=== PATIENT | male | born 1940 | race Caucasian/White ===

== ENCOUNTER → 2024-05-23 15:56 | Outpatient (REF) | payer MEDICARE, SELFPAY ==
[2024-05-23 16:17] LABS: MANUAL DIFF FLAG NO
[2024-05-23 17:20] LABS: Basophils Percent Auto 0.5 % (0-2); Eosinophils Absolute Auto 0.1 X10*3/uL (0.0-0.4); Eosinophils Percent Auto 2.4 % (0-4); Hematocrit 40.6 % (42.0-52.0); Hemoglobin 13.5 g/dl (14.0-18.0); Imm Gran Abs Auto 0.04 X10*3/uL (0.00-0.03); Imm Gran Pct Auto 0.7 % (0.0-0.4); Lymphocytes Absolute Auto 1.4 X10*3/uL (1.2-4.9); Lymphocytes Percent Auto 25.5 % (20-40); Mean Corpuscular HGB Conc 33.3 g/dl (31.0-36.0); Mean Corpuscular Hemoglobin 30.2 pg (27.0-33.0); Mean Corpuscular Volume 90.8 fL (80.0-98.0); Mean Platelet Volume 10.7 fL (9.4-12.4); Monocytes Absolute Auto 0.4 X10*3/uL (0.1-1.2); Monocytes Percent Auto 7.2 % (2-11); Neutrophils Absolute Auto 3.5 x10*3/uL (2.0-8.3); Neutrophils Percent Auto 63.7 % (45-73); Platelet Count 203 X10*3/uL (160-400); Red Blood Count 4.47 X10*6/uL (4.60-5.80); Red Cell Distribution Width 13.2 % (11.0-16.0); White Blood Count 5.5 X10*3/uL (4.8-10.8)
[2024-05-23 17:38] LABS: Alanine Aminotransferase 16 U/L (0-40); Albumin Level 4.1 g/dL (3.5-5.0); Anion Gap 12 (12-20); Aspartate Amino Transferase 24 U/L (5-37); Bilirubin Total 0.5 mg/dL (0.0-1.0); Blood Urea Nitrogen 14 mg/dL (9-16); Calcium 9.2 mg/dL (8.4-10.2); Carbon Dioxide 30 mmol/L (22-29); Chloride 102 mmol/L (96-108); Estimated Glomerular Filt Rate > 60; Glucose Random 95 mg/dL (60-115); Magnesium 2.1 mg/dL (1.6-2.6); Potassium 3.2 mmol/L (3.3-5.1); Sodium 141 mmol/L (135-145); Total Protein 7.9 g/dL (6.5-8.0)
[2024-05-23 17:57] LABS: Alkaline Phosphatase 58 U/L (39-117)
--- OUTSIDE RECORDS SUMMARY | 2024-05-23 18:11 | XMS_ITS | Encounter Summary ---
Author Organization [facility] Address [address] [place] [address] Care Team Providers Care Supervisor Acoustical Tile Carpenters Name Role Phone Lisandra Hernandez NP Primary Care Provider [phone] Reason for Referral * Cardiac Stress Testing (Routine) - Authorized Specialty Diagnoses / Procedures Referred By Contac t Referred To Contact Cardiology Diagnoses Abnormal EKG Chest pain, unspecified type Procedures Regadenoson (Lexiscan) nuclear stress test with myocardial perfusion IL MYOCARDIAL PERFUSION IMAGING TOMOGRAPHIC MULTI STUDIES AT REST OR STRESS IL MYOCARDIAL PERFUSION IMAGING TOMOGRAPHIC SINGLE STUDY AT REST OR STRESS IL CARDIOVASCULAR STRESS TEST GLOBAL IL CV TMST/BIKE MAX/SUBMAX CONTINUOUS ECG MON/PHARM STRESS SUPVSR ONLY IL CV STRESS TEST/BIKE CONT ECG MON/PHARM STRESS INTERP & REPORT ONLY IL TEST STRESS CARDIOVASCULAR TRACING ONLY Juan Pablo Gerard MD [address] [place] [address] Phone: tel: fax: [place] [address] Phone: tel: Referral ID Status Reason Start Date Expiration Date V isits Requested Visits Authorized [id number] Authorized 05/10/2024 05/10/2025 1 1 Encounter Details Date Type Department Care Team (Late st Contact Info) Description 05/04/2024 4:00 PM EST Office Visit [facility] [place] [facility] [place] [address] [place] [phone] Juan Pablo Gerard MD [address] [place] [address] Essential hypertension (Primary Dx); Abnormal EKG; Mixed hyperlipidemia; Chest pain, unspecified type Social History Tobacco Use Types Packs/Day Years Used Date Smoking Tobacco: Every Day Smokeless Tobacco: Never Sex and Gender Information Value Date Recorded Sex Assigned at Not on file Legal Sex Male 6:56 PM EST Gender Identity Not on file Sexual Orientation Not on file documented as of this encounter Last Filed Vital Signs Vital Sign Reading Time Taken Comments Blood Pressure 132/72 05/04/2024 4:17 PM EST Pulse 61 05/04/2024 4:17 PM EST Temperature - - Respiratory Rate - - Oxygen Saturation 94% 05/04/2024 4:17 PM EST Inhaled Oxygen Concentration - - Weight 78.9 kg (174 lb) 05/04/2024 4:17 PM EST Height 170.2 cm (5' 7 ) 05/04/2024 4:17 PM EST Body Mass Index 27.25 05/04/2024 4:17 PM EST documented in this encounter Progress Notes * Juan Pablo Gerard MD - 05/04/2024 4:00 PM EST Images from the original note were not included. Cardiology Attending Outpatient Progress Note-05/04/2024 [facility] Immigration Investigator-Moustapha Patient Name:Derek Faulkner Patient : 1940 Referring Provider:Lisandra Hernandez NP Interval History: The patient is a 83 y.o. male who was seen today for follow up of HTN, HLD, and Abn EKG. States he can climb stairs and plays soccer with the grandchildren. No lightheadedness / dizziness. + chest/shoulder pain at rest. No dyspnea. No palpitations / racing heart symptoms. No LE edema, orthopnea, or PND. BP is acceptable in the office today - 132/72. EKG reviewed - abnormal. Left axis deviation. Ns t changes. Current Outpatient Medications Medication Sig Dispense Refill aspirin 81 mg EC tablet Take 81 mg by mouth daily. atorvastatin (LIPITOR) 10 mg tablet Take 10 mg by mouth every evening. lisinopriL (PRINIVIL,ZESTRIL) 10 mg tablet Take 10 mg by mouth daily. multivit-min/folic acid/lutein (CENTRUM SILVER ORAL) Take by mouth 1 (one) time each day. tamsulosin (FLOMAX) 0.4 mg 24 hr capsule Take 1 capsule (0.4 mg total) by mouth 1 (one) time each day. Vitamin C tablet Take 100 mg by mouth daily. cholecalciferol (VITAMIN D-3) 10 mcg (400 unit) tablet Take 10 mcg by mouth daily. (Patient not taking: Reported on 05/04/2024) No current facility-administered medications for this visit. No Known Allergies VS Visit Vitals BP 132/72 Pulse 61 Ht 1.702 m (67 ) Wt 78.9 kg (174 lb) SpO2 94% BMI 27.25 kg/m?? Smoking Status Every Day BSA 1.91 m?? Today's PE and ROS Complete 12 point review of systems was completed and is negative as per HPI. Physical Exam Physical Exam Constitutional: General: He is not in acute distress. Appearance: Normal appearance. He is normal weight. HENT: Head: Normocephalic and atraumatic. Nose: Nose normal. Mouth/Throat: Mouth: Mucous membranes are moist. Eyes: Conjunctiva/sclera: Conjunctivae normal. Cardiovascular: Rate and Rhythm: Normal rate and regular rhythm. Pulses: Normal pulses. Pulmonary: Effort: Pulmonary effort is normal. No respiratory distress. Abdominal: Tenderness: There is no abdominal tenderness. Musculoskeletal: Cervical back: Normal range of motion. Skin: General: Skin is warm. Neurological: Mental Status: He is oriented to person, place, and time. Mental status is at baseline. Psychiatric: Thought Content: Thought content normal. Judgment: Judgment normal. EKG: Encounter Date: 05/04/24 ECG 12 lead Impression NSR 63, LAD, ns st/t changes History reviewed. No pertinent past medical history. History reviewed. No pertinent surgical history. Social History Socioeconomic History Marital status: Spouse name: Not on file Number of children: Not on file Years of education: Not on file Highest education level: Not on file Occupational History Not on file Tobacco Use Smoking status: Every Day Smokeless tobacco: Never Substance and Sexual Activity Alcohol use: Not on file Drug use: Not on file Sexual activity: Not on file Other Topics Concern Not on file Social History Narrative Not on file No family history on file. Assessment and Plan: HTN - BP acceptable today. Encouraged at home checks. -On lisinopril 10 mg daily. HLD - Last lipids are mostly at goal -- low HDL. -On well tolerated low dose atorvastatin of 10 mg daily. No change. +chest and shoulder pain - duration of a few seconds at rest. -Currently taking aspirin 81 mg daily. -If symptoms return, discussed obtaining a stress test. Abn. EKG - Echo 2021 showed low-nl EF with mild AI. Body mass index is 27.25 kg/m??. -Discussed the importance of a heart healthy diet, hydration, and exercise as tolerated. All questions were answered to the patient's satisfaction. Follow up arranged. Juan Pablo Gerard MD 05/04/2024 Office [phone] IHenny, attest that this documentation has been prepared under the direction and in the presence of Juan Pablo Gerard MD. I, Juan Pablo Gerard MD, personally performed the services described in this documentation. All medical record entries made by the scribe were at my direction and in my presence. I have reviewed the chart and agree that the record reflects my personal performance and is accurate and complete. Medical decision making for this established, stable patient includes: Problems listed above with additional workup planned, as outlined above, if needed. Data reviewed-last EKG, prior labs, prior imaging and old records (if available). Risk evaluated for problems and management options. documented in this encounter Plan of Treatment Upcoming Encounters Date Type Department Care Team (Late st Contact Info) Description 05/27/2024 9:00 AM EST Ancillary Procedure [facility] [address] [place] [address] 05/05/2025 10:45 AM EST Office Visit [facility] [address] [place] [address] [address] [place] [address] Juan Pablo Gerard MD 19 [facility] [address] [place] [address] Scheduled Orders Name Type Priority Associated Diagnoses Orde r Schedule Regadenoson (Lexiscan) nuclear stress test with myocardial perfusion Cardiac Nuclear Medicine Routine Abnormal EKG Chest pain, unspecified type 1 Occurrences starting 05/10/2024 until 05/10/2025 documented as of this encounter Procedures Procedure Name Priority Date/Time Associated Diagnosis Comments ECG 12-LEAD Routine 05/10/2024 1:43 PM EST Essential hypertension Abnormal EKG documented in this encounter Results * ECG 12 lead (05/10/2024 1:43 PM EST) Impressions Annette Schaeffer - 05/10/2024 1:43 PM EST NSR 63, LAD, ns st/t changes us Juan Pablo Gerard MD ECG ORDERABLES Final Resul t documented in this encounter Visit Diagnoses Diagnosis Essential hypertension- Primary Unspecified essential hypertension Abnormal EKG Nonspecific abnormal electrocardiogram (ECG) (EKG) Mixed hyperlipidemia Chest pain, unspecified type documented in this encounter Historical Medications * This list may reflect changes made after this encounter. tamsulosin (FLOMAX) 0.4 mg 24 hr capsule Take 1 capsule (0.4 mg total) by mouth 1 (one) time each day. 04/20/2024 added in this encounter Care Teams Supervisor Acoustical Tile Carpenters Relationship Specialty Start Date End Date Lisandra Hernandez NP [address] [place], [place] PCP - General Family Medicine 01/03/22 documented as of this encounter
--- OUTSIDE RECORDS SUMMARY | 2024-05-23 18:11 | XMS_ITS ---
Author Name [facility] Organization Unknown History of Medication Use Medication Directions Dispensed Refills Start Date End Date Stat Vitamin C tablet Take 100 mg by mouth daily. active tamsulosin (FLOMAX) 0.4 mg 24 hr capsule Take 1 capsule (0.4 mg total) by mouth 1 (one) time each day. 04/20/2024 active atorvastatin (LIPITOR) 10 mg tablet Take 10 mg by mouth every evening. active aspirin 81 mg EC tablet Take 81 mg by mouth daily. active cholecalciferol (VITAMIN D-3) 10 mcg (400 unit) tablet Take 10 mcg by mouth daily. active multivit-min/folic acid/lutein (CENTRUM SILVER ORAL) Take by mouth 1 (one) time each day. active lisinopriL (PRINIVIL,ZESTRIL) 10 mg tablet Take 10 mg by mouth daily. active tamsulosin 0.4 mg capsule Take 1 capsule every day by oral route. 04/20/2024 active tamsulosin 0.4 mg capsule active Problems Problem Status Onset Date Problem Type Date of Resolution Source Chest pain, unspecified type active EncounterDiagnosisAct CT _THSFRAN Abnormal EKG active 2022-01-[address] SFRAN Hyperlipidemia active 2022-01-[address]_ THSFRAN Essential hypertension active 2022-01-[address]_[facility]SFRAN Prostate specific antigen above reference range active 2024-04-20 ProblemAct ENS_PHCCT Benign prostatic hyperplasia with outflow obstruction active 2024-04-20 ProblemAct ENS_PHCC T Mixed hyperlipidemia active EncounterDiagnosisA ct CT_THSFRAN
--- OUTSIDE RECORDS SUMMARY | 2024-05-23 18:11 | XMS_ITS | Clinical Summary ---
Author Organization [facility] Address [address] [place] [address] Care Team Providers Care Drag Out Man Name Role Phone Lisandra Hernandez Primary Care Provider [phone] Allergies No known active allergies Medications Medication Sig Dispensed Refills Start Date End Date Status atorvastatin (LIPITOR) tablet 10 mg Take 10 mg by mouth every evening. 0 Active lisinopril (PRINIVIL,ZESTRIL) tablet 10 mg Take 10 mg by mouth daily. 0 Active Multiple Vitamins-Minerals (CENTRUM SILVER PO) Take by mouth daily. 0 Active aspirin EC 81 MG tablet Take 81 mg by mouth daily. 0 Active vitamin D3 (cholecalciferol) 10 MCG (400 UNIT) tablet Take 10 mcg by mouth daily. 0 Active Ascorbic Acid (vitamin C) 100 MG tablet Take 100 mg by mouth daily. 0 Active Active Problems Problem Noted Date Diagnosed Date Abnormal EKG 01/03/2022 Essential hypertension 01/03/2022 Hyperlipidemia 01/03/2022 Social History Tobacco Use Types Packs/Day Years Used Date Smoking Tobacco: Every Day Smokeless Tobacco: Never Sex and Gender Information Value Date Recorded Sex Assigned at Male 11/12/2021 10:37 AM EDT Gender Identity Not on file Sexual Orientation Not on file Job Start Date Occupation Industry Not on file Not on file Not on file Last Filed Vital Signs Vital Sign Reading Time Taken Comments Blood Pressure 118/68 01/03/2022 3:32 PM EDT Pulse 92 01/03/2022 3:32 PM EDT Temperature 36.2 ??C (97.1 ??F) 01/03/2022 3:32 PM ED T Respiratory Rate - - Oxygen Saturation 97% 01/03/2022 3:32 PM EDT Inhaled Oxygen Concentration - - Weight 79.4 kg (175 lb) 01/03/2022 3:32 PM EDT Height 167.6 cm (5' 6 ) 01/03/2022 3:32 PM EDT Body Mass Index 28.25 01/03/2022 3:32 PM EDT Plan of Treatment Health Maintenance Due Date Last Done Comments Pneumococcal Vaccine (1 of 2 - PCV) 07[birth year]09/1946 Depression Screening 1953 Preventative Health Evaluation 07/09/1959 Tobacco Cessation Counseling 07/09/1959 DTap / Tdap / Td (1 - Tdap) 1960 Shingrix-Zoster Vaccine (1 o f 2) 07/09/1991 Fall Risk Assessment 2006 RSV Adult > 60+ Yrs or (1 - 1-dose 75+ series) 2016 COVID-19 Vaccine (3 - 2023-2 5 season) 2023 08/24/2020, 08/03/2020 Influenza Vaccine (#1) 2023 Hepatitis B Vaccines Aged Out No long er eligible based on patient's age to complete this topic RSV Ped < 20 months Aged Out No longe r eligible based on patient's age to complete this topic Care Teams Drag Out Man Relationship Specialty Start Date End Date Lisandra Hernandez PCP - General Family Medicine 01/03/22
--- OUTSIDE RECORDS SUMMARY | 2024-05-23 18:11 | XMS_ITS | Encounter Summary ---
Author Organization [facility] Address [address] [place] [address] Care Team Providers Care Audio Visual Arts Director Name Role Phone Lisandra Hernandez NP Primary Care Provider [phone] Encounter Details Date Type Department Care Team (Latest Contact Info) Description 01/29/2024 9:27 AM EDT Hospital Encounter TH HISTORIC ENCOUNTERS EASTERN CONVERSION ONLY Unspecified abdominal pain; Left lower quadrant pain Social History Tobacco Use Types Packs/Day Years Used Date Smoking Tobacco: Every Day Smokeless Tobacco: Never Sex and Gender Information Value Date Recorded Sex Assigned at Not on file Legal Sex Male 6:56 PM EST Gender Identity Not on file Sexual Orientation Not on file documented as of this encounter Last Filed Vital Signs Vital Sign Reading Time Taken Comments Blood Pressure - - Pulse - - Temperature - - Respiratory Rate - - Oxygen Saturation - - Inhaled Oxygen Concentration - - Weight 79.4 kg (175 lb) 01/03/2022 3:32 PM EDT Height 167.6 cm (5' 6 ) 01/03/2022 3:32 PM EDT Body Mass Index 28.25 01/03/2022 3:32 PM EDT documented in this encounter Plan of Treatment Upcoming Encounters Date Type Department Care Team (Late st Contact Info) Description 05/27/2024 9:00 AM EST Ancillary Procedure [facility] [address] [place] [phone] 05/05/2025 10:45 AM EST Office Visit [facility] [place] [address] [place] [address] [address] [place] [address] Juan Pablo Gerard MD [address] [place] [address] [address] [place], [place] [id number] documented as of this encounter Procedures Procedure Name Priority Date/Time Associated Diagnosis Comments US KIDNEY BILATERAL Routine 01/29/2024 1 0:05 AM EDT Unspecified abdominal pain Left lower quadrant pain documented in this encounter Results * US KIDNEY BILATERAL (01/29/2024 10:05 AM EDT) Anatomical Region Laterality Modality Ultrasound 01/25/2024 11:3 9 AM EDT Narrative 01/29/2024 11:02 AM EDT EXAM: US KIDNEY BILATERAL HISTORY: Left flank pain, Acute left lower quadrant pain FINDINGS: Examination of the kidneys and bladder. The right kidney measures 11 cm with no hydronephrosis or focal lesion. The left kidney measures 11.5 cm with no hydronephrosis or focal mass lesion. There is a 1.7 cm cyst identified in the lower pole of the right kidney. The bladder is not well distended with a prevoid volume of 78 cc. Post void residual 28 cc. The left and right ureteral jets are seen. The prostate is enlarged with a volume of 90 cc. IMPRESSION: 1. Small right renal cyst. 2. Enlarged prostate. Permanent images were obtained. Report reviewed and signed by : Dr. Steve St MD on 01/29/2024 11:02 AM. Workstation Name - [id number] Procedure Note Steve St MD - 02/01/2024 EXAM: US KIDNEY BILATERAL HISTORY: Left flank pain, Acute left lower quadrant pain FINDINGS: Examination of the kidneys and bladder. The right kidney measures 11 cm with no hydronephrosis or focal lesion. The left kidney measures 11.5 cm with no hydronephrosis or focal masslesion. There is a 1.7 cm cyst identified in the lower pole of the right kidney. The bladder is not well distended with a prevoid volume of 78 cc. Postvoid residual 28 cc. The left and right ureteral jets are seen. The prostate is enlarged with a volume of 90 cc. IMPRESSION: 1. Small right renal cyst. 2. Enlarged prostate. Permanent images were obtained. Report reviewed and signed by : Dr. Steve St MD on 01/29/2024 11:02AM. Workstation Name - [id number] us Lisandra Hernandez NP IMG US PROCEDURES Final Result documented in this encounter Visit Diagnoses Diagnosis Unspecified abdominal pain Left lower quadrant pain Abdominal pain, left lower quadrant documented in this encounter Care Teams Audio Visual Arts Director Relationship Specialty Start Date End Date Lisandra Hernandez NP [address] [place], [place] PCP - General Family Medicine 01/03/22 documented as of this encounter
--- OUTSIDE RECORDS SUMMARY | 2024-05-23 18:11 | XMS_ITS | Clinical Summary ---
Author Organization [facility] Address [address] [place] [address] Phone Care Team Providers Care Education Reviewer Name Role Phone Lisandra Hernandez NP Primary Care Provider [phone] Allergies No known active allergies Medications Vitamin C tablet Take 100 mg by mouth daily. Active aspirin 81 mg EC tablet Take 81 mg by mouth daily. Active atorvastatin (LIPITOR) 10 mg tablet Take 10 mg by mouth every evening. Active lisinopriL (PRINIVIL,ZESTR IL) 10 mg tablet Take 10 mg by mouth daily. Active multivit-min/fo lic acid/lutein (CENTRUM SILVER ORAL) Take by mouth 1 (one) time each day. Active cholecalciferol (VITAMIN D-3) 10 mcg (400 unit) tablet Take 10 mcg by mouth daily. Active tamsulosin (FLOMAX) 0.4 mg 24 hr capsule Take 1 capsule (0.4 mg total) by mouth 1 (one) time each day. 04/20/2024 Active Active Problems Problem Noted Date Diagnosed Date Abnormal EKG 01/03/2022 Essential hypertension 01/03/2022 Hyperlipidemia 01/03/2022 Encounters Date Type Department Care Team Description 05/04/2024 4:00 PM EST Office Visit [facility] Cardiology [facility] [address] [address] Juan Pablo Gerard MD Essential hypertension (Primary Dx); Abnormal EKG; Mixed hyperlipidemia; Chest pain, unspecified type from Last 3 Months Social History Tobacco Use Types Packs/Day Years Used Date Smoking Tobacco: Every Day Smokeless Tobacco: Never Sex and Gender Information Value Date Recorded Sex Assigned at Not on file Legal Sex Male 6:56 PM EST Gender Identity Not on file Sexual Orientation Not on file Obstetrics History Last Filed Vital Signs Vital Sign Reading [...] Mass Index 27.25 05/04/2024 4:17 PM EST Plan of Treatment Upcoming Encounters Date Type Department Care Team ([facility] st Contact Info) Description 05/27/2024 9:00 AM EST Ancillary Procedure [facility] [place] 19 [facility] [address] [place] [address] 05/05/2025 10:45 AM EST Office Visit [facility] [address] [place] [address] [address] [place] [address] Juan Pablo Gerard MD 19 [facility] [address] [place], [place] [id number] Health Maintenance Due Date Last Done Comments DTaP,Tdap,and Td Vaccines (1 - Tdap) 1959 Pneumococcal Vaccine: 50+ Years (1 of 2 - PCV) 1960 Zoster Vaccines (1 of 2) 07/09/1991 RSV Immunization Patients 60 + Years Old (1 - 1-dose 75+ series) 2016 Depression Screening 03/01/2022 Falls Risk Assessment 03/01/2022 Medicare Annual Wellness Visit 03/01/2022 Social Influencers of Health Screening 03/01/2022 COVID-19 Vaccine (3 - 2023-2 5 season) 2023 08/24/2020, 08/03/2020 Influenza Vaccine (#1) 2023 Hypertension/CHF/CAD Annual BMP Blood Test 01/18/2025 01/19/2024 Cholesterol Screening (Lipid Panel) 01/18/2029 01/19/2024 HIB Vaccines Aged Out No longer eligi ble based on patient's age to complete this topic HPV Vaccines Aged Out No longer eligi ble based on patient's age to complete this topic Hepatitis A Vaccines Aged Out No long er eligible based on patient's age to complete this topic Hepatitis B Vaccines Aged Out No long er eligible based on patient's age to complete this topic IPV Vaccines Aged Out No longer eligi ble based on patient's age to complete this topic MMR Vaccines Aged Out No longer eligi ble based on patient's age to complete this topic Meningococcal ACWY Vaccine Aged Out N o longer eligible based on patient's age to complete this topic Meningococcal B Vacine Aged Out No lo nger eligible based on patient's age to complete this topic RSV Immunization Patients Under 20 months Aged Out No longer eligible b ased on patient's age to complete this topic Varicella Vaccines Aged Out No longer eligible based on patient's age to complete this topic Procedures Procedure Name Priority Date/Time Associated Diagnosis Comments ECG 12-LEAD Routine 05/10/2024 1:43 PM EST Essential hypertension Abnormal EKG ANNUAL BMP BLOOD TEST Routine 01/19/2024 LIPID PANEL Routine 01/19/2024 from Last 3 Months or Most Recently Relevant to Health Maintenance Results * ECG 12 lead (05/10/2024 1:43 PM EST) Impressions SchaefferJessee jacomessica - 05/10/2024 1:43 PM EST NSR 63, LAD, ns st/t changes Juan Pablo Gerard MD ECG ORDERABLES Final Resul t * Annual BMP Blood Test (01/19/2024) Pathologist [facility] Annual BMP Blood Test abstracted Historical Provider HEALTH MAINTENANCE Final Result * Lipid panel (01/19/2024) Triglycerides 0 mg/dL Comment:no interpretation, a bstracted Cholesterol 0 mg/dL Comment:no interpretation, a bstracted HDL 0 mg/dL Comment:no interpretation, a bstracted LDL Cholesterol 0 mg/dL Comment:no interpretation, a bstracted Blood Venous blood specimen / Unknown us Historical Provider LAB BLOOD ORDERABLES Barbi l Result from Last 3 Months or Most Recently Relevant to Health Maintenance Insurance [employer]ARE Care Teams Education Reviewer Relationship Specialty Start Date End Date Lisandra Hernandez NP [address] [place], [place] PCP - General Family Medicine 01/03/22
== END ==
LOC: HO.CARD 15:56
PROVIDERS: PCP Nurse Practitioner Primary Care; Visit Provider Social Worker
DX: R42 Dizziness and giddiness (principal)
CPT/HCPCS: 36415; 80053; 83735; 85025